=== PATIENT | male | born 1965 | race Caucasian/White ===

== ENCOUNTER 2023-10-16 02:46 | Inpatient (IN) | payer OTHER, SELFPAY ==
--- NOTE | ~2023-10-16 | XR_ITS ---
Right Knee Technique: AP, lateral, and oblique views were obtained. Clinical History: Pain Findings: No fracture or dislocation is seen. Osseous alignment is anatomic. Minimal patellar spurrin g noted. Soft tissues are unremarkable. No joint effusion is seen. Impression: Minimal patellar spurring. Reviewed, dictated and finalized at location . Impression: Minimal patellar spurring.
--- NOTE | ~2023-10-16 | US_ITS ---
EXAMINATION: US venous doppler LE RT DATE: 10/16/2023 13:30 INDICATION: Right lower limb swelling. TECHNIQUE: Grayscale ultrasound images without and with compression and Doppler ultrasound images of the right lower extremity veins were obtained. COMPARISON: None. FINDINGS: The visualized portions of right common femoral vein, profunda (deep) femoral vein, femoral vein, pop liteal vein, peroneal veins, posterior tibial veins, and greater saphenous vein outflow are patent. T here is a small De La Rosa's cyst. IMPRESSION: 1. No deep venous thrombosis. 2. Small De La Rosa's cyst. Reviewed, dictated and finalized at location A.
[2023-10-16 02:48] VITALS: BP 126/78; PULSE 87; RESP 16; TEMP 36.9; O2SAT 99
--- NOTE | 2023-10-16 03:23 | ED.GENADULT ---
HPI - General Adult General Chief complaint: Extremity Problem,Nontraumatic Stated complaint: right knee swelling Time Seen by Provider: 10/16/23 02:57 History of Present Illness HPI narrative: patient is 58-year-old gentleman presents emergency department with chief complaint of pain in the right area. Patient reports that he does a lot of movement around at work including having to crawl around on his knees the patient reports that he was wearing pants reports of trauma patient states that he got off work and walk around midnight 30 with pain just below his kneecap on the right leg patient reports pain is not worsened whenever he stands reports that it hurts whenever he moves the knee and it appears to be below the actual knee joint itself. Patient denies fever reports that he has had no puncture wounds or trauma to the affected area. The patient denies redness to the knee Related Data Allergies Allergy/AdvReac Type Severity Reaction Status Date / Time No Known Allergies Allergy Verified 10/16/23 02:48 Review of Systems Review of Systems: A 10 system review of systems was completed on the patient and is negative except for what is stated in the HPI. Nursing and ancillary documentation was reviewed. Exam Narrative: GENERAL: Well-appearing, well-nourished, and in no acute distress. HEAD: Normocephalic, atraumatic. EYES: PERRLA and EOMI. ENT: Nares clear, no rhinorrhea or epistaxis. Mucous membranes moist. NECK: Supple. CHEST: Clear to auscultation. No respiratory distress. HEART: Regular rate and rhythm. No murmur heard. Normal peripheral pulses. ABDOMEN: Soft, nontender, nondistended, normal active bowel sounds. EXTREMITIES: Normal range of motion there is swelling present inferior to the right patella tendon. anterior posterior drawer are negative Kevin's is negative. The joint is stable to lateral movement of the lower extremity there is no erythema on the overlying tissue. No edema. SKIN: Warm, dry, no rash. NEURO: No focal deficits. Alert and oriented x3. PSYCH: Normal mood and affect. Course Vital Signs Vital signs: Vital Signs Temperature 36.9 C 10/16/23 02:48 Pulse Rate 87 10/16/23 02:48 Respiratory Rate 16 10/16/23 02:48 Blood Pressure 126/78 10/16/23 02:48 Pulse Oximetry 99 05/30/24 02:48 Temperature 36.9 C 10/16/23 02:48 Pulse Rate 82 10/16/23 06:37 Respiratory Rate 16 10/16/23 06:37 Blood Pressure 122/72 10/16/23 06:37 Pulse Oximetry 98 10/16/23 06:37 Procedures Joint Aspiration/Injection Joint Asp./Inject. 1: Joint Aspiration Date: 10/16/23 Joint Aspiration Time: 04:35 Time Out Performed: Yes Side of body: right Joint Aspirated: knee (infrapatellar bursa) Ultrasound Guidance: Yes Skin Prep: sterile prep and drape Local Anesthetic: none Needle Size Used: 18G Fluid Obtained: bloody Total fluid obtained (mL): 2 Patient Tolerated Procedure: well and no complications Complications: none Medical Decision Making MDM Narrative Medical decision making narrative: differential diagnosis includes septic arthritis, septic bursitis, bursitis, gout, plain film x-ray showed no evidence of fracture and no evidence of joint effusion. Bedside ultrasound did show fluid in the bursa laboratory studies were obtained on the patient showed a white count of 16.4 electrolytes showed a sodium of 138 sed rate was slightly elevated at 25 CRP was elevated at 3.2 the bursa was aspirated which showed 12,848 white blood cells with 79% neutrophils there were no crystals seen gram stain showed Gram-positive cocci the case was discussed with Orthopedics on-call the patient was started on Rocephin and vancomycin and the patient will be admitted for management of the septic infrapatellar bursitis Vital Signs Vital Signs: Vital Signs Temperature 36.9 C 10/16/23 02:4
[2023-10-16 03:36] LABS: Basophils Absolute Auto 0.1 K/mm3 (0.0-0.1); Basophils Percent Auto 0.4 % (0.2-1.2); Eosinophils Percent Auto 0.1 % (0-4.4); Hematocrit 43.7 % (42.0-52.0); Hemoglobin 14.6 g/dL (14.0-18.0); Immature Granulocyte Absolute 0.07 K/mm3 (0.00-0.031); Immature Granulocyte Percent A 0.4 % (0-0.5); Lymphocytes Absolute Auto 1.54 K/mm3 (0.9-3.2); Lymphocytes Percent Auto 9.4 % (18.3-44.2); Mean Corpuscular HGB Conc 33.4 g/dl (32-36); Mean Corpuscular Hemoglobin 30.5 pg (26-34); Mean Corpuscular Volume 91.2 fl (80-100); Mean Platelet Volume 10.7 fl (7.4-10.4); Monocytes Percent Auto 6.2 % (2.6-8.5); Neutrophils Absolute Auto 13.7 K/mm3 (1.3-6.7); Neutrophils Percent Auto 83.5 % (45.5-73.1); Platelet Count Result 223 k/mm3 (150-375); Red Blood Count 4.79 M/mm3 (4.6-6.20); Red Cell Distribution Width 13.1 % (11.5-14.5); White Blood Count 16.4 K/mm3 (4.5-10.0)
[2023-10-16] MEDS: KETOROLAC 30 MG/ML VIAL (*BKC) IM (03:37)
[2023-10-16 03:45] LABS: Alanine Aminotransferase 27 U/L (6-50); Albumin Level 4.2 g/dL (3.5-5.1); Alkaline Phosphatase 57 U/L (38-126); Anion Gap 8 mmol/L (4-12); Aspartate Amino Transferase 30 U/L (17-59); Bilirubin,Total 0.6 mg/dL (0.2-1.3); Blood Urea Nitrogen 15 mg/dL (9-20); Calcium 9.1 mg/dL (8.4-10.2); Carbon Dioxide 23 mmol/L (22-30); Chloride 105 mmol/L (98-107); Estimated CRCL calculation 76 ml/min; Estimated Glomerular Filt Rate > 60; Glucose 118 mg/dL (65-110); Potassium 3.7 mmol/L (3.4-5.0); Sodium 136 mmol/L (137-145)
[2023-10-16 03:47] LABS: CRP 3.2 mg/dL (<1.0)
[2023-10-16 03:59] LABS: Erythrocyte Sedimentation Rate 25 mm/hr (0-20)
--- NOTE | 2023-10-16 04:18 | PC.NURSE ---
Consent signed for aspiration of right knee bursa to be performed by GHASSAN Lai.
[2023-10-16] MEDS: HYDROcodone/acetaminophen (*CRX) 5-325 MG TABLET 1 TAB PO ×2 (04:42→21:15)
[2023-10-16 05:22] LABS: Appearance Synovial Fluid Cloudy (Clear); Color Synovial Fluid Red (Colorless); Neutrophils Synovial Fluid 79 % (0-25); Nucleated Cell Synovial Fluid 12848 /uL (0-200); RBC Synovial Fluid 184000 /uL (0-0); Source Synovial Fluid Synovial fluid
[2023-10-16 05:23] LABS: Lymphocytes Synovial Fluid 6 %; Macrophages Synovial Fluid 8 %; Monocytes Synovial Fluid 6 %
[2023-10-16 05:31] LABS: Crystals Synovial Fluid None Seen (None Seen)
[2023-10-16 06:37] VITALS: BP 122/72; PULSE 82; RESP 16; O2SAT 98
[2023-10-16] MEDS: VANCOMYCIN 1,250 MG/NS 250 ML 1,250 MG/250 ML BAG 166.67 MG IVPB ×2 (07:39→09:33)
--- NOTE | 2023-10-16 08:01 | ADMGEN ---
This patient, Yevgeniy Romero, was admitted to Medical Room 260-. Patient/family oriented to hospital policies and general routines including ID bracelet, bed and alarms, visiting hours, pain management, procedures, bathroom and other care routines, personal items, smoking policy, room service/diet, and visiting hours. Information on how to activate the Rapid Response Team has been discussed. Patient/Family are encouraged to report perceived risks to care and to ask questions if they do not understand what they are told or what they should do.
[2023-10-16 08:03] VITALS: BMI 32.4
[2023-10-16 09:07] VITALS: BP 98/64; PULSE 57; RESP 18; TEMP 36.2; O2SAT 98
[2023-10-16] MEDS: MORPHINE SULFATE (*CRX) 2 MG/ML INJ IV PUSH ×3 (09:09→23:00)
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
[2023-10-16] MEDS: SODIUM CHLORIDE 0.9% IV 1,000 ML 999 ML IV CONT (12:45)
[2023-10-16] MEDS: cefTRIAXone 2 GM/NS 100 ML 2 GM/100 ML BAG IVPB (12:45)
[2023-10-16] MEDS: ENOXAPARIN 40 MG/0.4 ML SYRINGE SUB-Q (12:46)
[2023-10-16 12:59] LABS: Hemoglobin A1C 5.9 % (<5.7)
[2023-10-16 16:46] VITALS: BP 111/55; PULSE 66; RESP 16; TEMP 36.8; O2SAT 98
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
[2023-10-16 19:47] VITALS: BP 126/60; PULSE 68; RESP 17; TEMP 36.5; O2SAT 99
[2023-10-17] MEDS: HYDROcodone/acetaminophen (*CRX) 5-325 MG TABLET 1 TAB PO ×3 (02:00→19:37)
[2023-10-17] MEDS: VANCOMYCIN 1,500 MG/NS 500 ML 1,500 MG/500 ML BAG 250 MG IVPB (02:01)
[2023-10-17 04:28] VITALS: BP 138/82; PULSE 70; RESP 18; TEMP 36.6; O2SAT 99
[2023-10-17 05:22] LABS: Basophils Percent Auto 0.3 % (0.2-1.2); Eosinophils Absolute Auto 0.1 K/mm3 (0-0.3); Eosinophils Percent Auto 0.6 % (0-4.4); Hematocrit 40.1 % (42.0-52.0); Hemoglobin 13.5 g/dL (14.0-18.0); Immature Granulocyte Absolute 0.05 K/mm3 (0.00-0.031); Immature Granulocyte Percent A 0.4 % (0-0.5); Lymphocytes Absolute Auto 1.23 K/mm3 (0.9-3.2); Lymphocytes Percent Auto 9.8 % (18.3-44.2); Mean Corpuscular HGB Conc 33.7 g/dl (32-36); Mean Corpuscular Hemoglobin 31.3 pg (26-34); Mean Platelet Volume 11.4 fl (7.4-10.4); Monocytes Percent Auto 8.2 % (2.6-8.5); Neutrophils Absolute Auto 10.1 K/mm3 (1.3-6.7); Neutrophils Percent Auto 80.7 % (45.5-73.1); Platelet Count Result 193 k/mm3 (150-375); Red Blood Count 4.31 M/mm3 (4.6-6.20); Red Cell Distribution Width 13.1 % (11.5-14.5); White Blood Count 12.5 K/mm3 (4.5-10.0)
[2023-10-17 05:40] LABS: Alanine Aminotransferase 41 U/L (6-50); Albumin Level 3.5 g/dL (3.5-5.1); Alkaline Phosphatase 62 U/L (38-126); Anion Gap 6 mmol/L (4-12); Aspartate Amino Transferase 38 U/L (17-59); Bilirubin,Total 0.7 mg/dL (0.2-1.3); Blood Urea Nitrogen 12 mg/dL (9-20); Calcium 8.1 mg/dL (8.4-10.2); Carbon Dioxide 23 mmol/L (22-30); Chloride 109 mmol/L (98-107); Estimated CRCL calculation 76 ml/min; Estimated Glomerular Filt Rate > 60; Glucose 114 mg/dL (65-110); Potassium 3.6 mmol/L (3.4-5.0); Sodium 138 mmol/L (137-145)
--- NOTE | 2023-10-17 06:50 | PM.IMPN ---
Progress Note: A&P Assessment and Plan (1) Septic infrapatellar bursitis of right knee: Code(s): M71.161 - Other infective bursitis, right knee; B96.89 - Other specified bacterial agents as the cause of diseases classified elsewhere Status: Acute Assessment and Plan: Erythema, edema and warmth noted to the right knee with painful active ROM, fluctuance of the bursa with pain on palpation, tenderness to the distal patella and the upper urbina. 2+ DP pulses bilaterally. Patient able to ambulate around room without assistance. White count 16.4, neutrophils 83.5% on admission. Lactic normal Knee XR: Minimal patellar spurring Venous Doppler negative for DVT S/p joint aspiration in the ER. G stain showing Gram-positive cocci. Synovial fluid culture collected on 10/15: Pending Blood cultures collected on 10/15: NGTD Antibiotics: Rocephin and vancomycin started 10/15 Analgesics: Oxy, Morphine and Tylenol Received 1 L NS for borderline pressure, blood pressure remains stable. Continue to monitor Orthopedics was consulted, recommend continued IV antibiotics and monitor for 24 hours. If patient does not clinically improve, may aspirate the bursa again with possible need for surgical debridement. Aqua K-pad ordered Lovenox and SCD for DVT prophylaxis (2) Prediabetes: Code(s): R73.03 - Prediabetes Status: Acute Assessment and Plan: Hgb A1c 5.9. Patient aware and states he was previously on medication but his previous PCP discontinued this after his weight loss. He is now trying to control his glucose with diet and exercise. He recently moved to the area and does not have a PCP at this time. Care coordination following. - Monitor glucose levels - Patient will have to follow up with PCP outpatient, care coordination to give PCP information Time Spent With Patient Time with patient: 25 - 35 minutes Subjective Date/time seen: 10/17/23 06:50 Interval history: 58 year old male with no significant past medical history reports to the hospital for right knee pain. Patient is pleasant lying comfortably in bed. He continues to endorse pain with flexion of the knee. He is able to ambulate around the room without issues. He was evaluated by ortho who recommend continued IV antibiotics and monitor for 24 hours. If patient does not clinically improve, may aspirate the bursa again with possible need for surgical debridement. Discussed this with patient and he states understanding. Patient had an A1c of 5.9 on labs. He states his previous PCP was monitoring this and he was on medication prior to losing weight with diet and exercise. Care coordination following for PCP referrals. Patient denies chest pain, shortness of breath, nausea/vomiting and changes bowel/bladder. Review of Systems Review of Systems: All systems reviewed & are unremarkable except as noted in HPI and below Exam Narrative: AF HR 70 RR 18 SpO2 97 BP 117/64 General: male in no acute respiratory distress who is nontoxic appearing, lying semi recumbent in bed. HEENT: Normocephalic. Atraumatic. Pupils equal round reactive to light. Extraocular movement intact. No facial asymmetry. Chest: Lungs are clear to auscultation bilaterally. No wheezes or crackles. CV: Heart was regular rate and rhythm. S1/S2. No murmurs, gallops, or rubs. Abd: Abdomen was soft. Nontender. Nondistended. Positive bowel sounds. No organomegaly or masses. Ext: Erythema, edema and warmth noted to the right knee with painful active ROM, fluctuance of the bursa with pain on palpation, tenderness to the distal patella and the upper urbina. 2+ DP pulses bilaterally. Patient able to ambulate around room without assistance. Neuro: Patient is alert and oriented x4. Cranial nerves 2-12 are intact. Speech is clear. Psych: Normal mood and affect. Patient is pleasant and cooperative. Skin: Warm and dry. Objective Data Vital Signs Vital Signs: Vital Signs - 24 hr 10/16/23
[2023-10-17] MEDS: MORPHINE SULFATE (*CRX) 2 MG/ML INJ IV PUSH ×4 (07:38→21:28)
--- NOTE | 2023-10-17 07:38 | PM.PNORT ---
Progress Note: A&P Assessment and Plan (1) Septic infrapatellar bursitis of right knee: Code(s): M71.161 - Other infective bursitis, right knee; B96.89 - Other specified bacterial agents as the cause of diseases classified elsewhere Status: Acute Assessment and Plan: Patient is day 2. After admission to the hospital and initiation of vancomycin and ceftriaxone. Aspirate was sent for culture of right prepatellar infrapatellar bursa and cultures are pending. It did show Gram-positive cocci moderate under the microscope. His white count today is 12.5 somewhat improved. On exam his range of motion is 0-80 degrees. I can feel a [id number] effusion in his right knee today but with careful attention to location of tenderness, the patient states that he has no tenderness in the suprapatellar bursa and the effusion. His tenderness is all distal to the patella. With flexion to 80 he feels pain from the tibial tubercle down about 12 in long the front of the urbina. He is comfortable walking he has been up to the bathroom already this morning. We will see how he progresses over the next 24 hours. If he is not clinically improved by then, it may be beneficial to aspirate the prepatellar bursa again. If this does not improve with antibiotics along he may require surgical debridement and this was discussed. Subjective Subjective Date/Time Seen: 10/17/23 07:38 Objective Data Vital Signs Vital Signs: Vital Signs - 24 hr 10/16/23 09:07 10/16/23 08:00 10/16/23 16:46 Temperature 36.2 C L 36.8 C Pulse Rate 57 L 66 Respiratory Rate 18 16 Blood Pressure 98/64 L 111/55 L Pulse Oximetry 98 98 Oxygen Delivery Room Air 10/16/23 19:47 10/17/23 04:28 Temperature 36.5 C 36.6 C Pulse Rate 68 70 Respiratory Rate 17 18 Blood Pressure 126/60 138/82 Pulse Oximetry 99 99 Oxygen Delivery Intake/Output Intake/Output: Intake & Output 10/14/23 10/15/23 10/16/23 10/17/23 23:59 23:59 23:59 23:59 Intake Total 1230 500 Balance 1230 500 Meds/Results Medications: Active Medications Generic Name Dose Route Start Last Admin Trade Name Freq PRN Reason Stop Dose Admin Acetaminophen 650 mg 10/16/23 07:12 Acetaminophen 325 Mg Tablet PO Q4H PRN Mild Pain (1-3) or Fever Hydrocodone Bitart/Acetaminophen 1 tab 10/16/23 18:21 10/17/23 02:00 Hydrocodone/Acetaminophen (*Crx) 5-325 Mg Tablet PO 1 tab Q4H PRN Administration Pain Rated 4-6 Enoxaparin Sodium 40 mg 10/16/23 12:20 10/16/23 12:46 Enoxaparin 40 Mg/0.4 Ml Syringe SUB-Q 40 mg DAILY SURJIT Administration Vancomycin HCl 1,500 mg in 500 mls @ 250 mls/hr 10/17/23 02:00 10/17/23 04:01 Vancomycin 1,500 Mg/Ns 500 Ml IVPB Infused Q18H SURJIT Infusion Ceftriaxone Sodium 2 gm in 100 mls @ 200 mls/hr 10/16/23 12:00 10/16/23 12:45 Rocephin 2 Gm/Ns 100 Ml IVPB 200 mls/hr Q24H SURJIT Administration Morphine Sulfate 2 mg 10/16/23 07:12 10/17/23 07:38 Morphine Sulfate (*Crx) 2 Mg/Ml Inj IV PUSH 2 mg Q2H PRN Administration Pain Rated 7-10 Radiology Results: ITS Impressions Knee X-Ray 10/16/23 05:33 Impression: Minimal patellar spurring. Venous Doppler Study 10/16/23 13:32 IMPRESSION: 1. No deep venous thrombosis. 2. Small De La Rosa's cyst. Labs Labs: Laboratory Results - last 24 hr 10/16/23 10/16/23 10/17/23 03:27 12:30 04:18 WBC 12.5 H RBC 4.31 L Hgb 13.5 L Hct 40.1 L MCV 93.0 MCH 31.3 MCHC 33.7 RDW 13.1 Plt Count 193 MPV 11.4 H Immature Gran % (Auto) 0.4 Neut % (Auto) 80.7 H Lymph % (Auto) 9.8 L Becker % (Auto) 8.2 Eos % (Auto) 0.6 Baso % (Auto) 0.3 Lymph # (Auto) 1.23 Becker # (Auto) 1.0 H Eos # (Auto) 0.1 Baso # (Auto) 0.0 Abs Immat Gran (auto) 0.05 H Absolute Neuts (auto) 10.1 H Absolute Nucleated RBC 0.000 Nucleated RBC % 0.0 Sodium 138 Potassium 3.6 Chlori
[2023-10-17] MEDS: ENOXAPARIN 40 MG/0.4 ML SYRINGE SUB-Q (08:20)
[2023-10-17] MEDS: cefTRIAXone 2 GM/NS 100 ML 2 GM/100 ML BAG IVPB (12:31)
[2023-10-17 13:23] VITALS: BP 117/64; PULSE 70; RESP 18; TEMP 36.9; O2SAT 97
[2023-10-17 19:23] VITALS: BP 125/70; PULSE 79; RESP 17; TEMP 36.5; O2SAT 100
[2023-10-17 19:27] LABS: Vancomycin Trough 6.3 ug/mL (10.0-20.0)
[2023-10-17] MEDS: VANCOMYCIN 1,750 MG/NS 500 ML 1,750 MG/500 ML BAG 250 MG IVPB (21:00)
[2023-10-18] MEDS: HYDROcodone/acetaminophen (*CRX) 5-325 MG TABLET 1 TAB PO ×5 (03:30→17:09)
[2023-10-18 04:41] VITALS: BP 109/60; PULSE 72; RESP 17; TEMP 36.6; O2SAT 98
[2023-10-18 05:17] LABS: Estimated CRCL calculation 70 ml/min; Estimated Glomerular Filt Rate > 60
[2023-10-18 06:54] LABS: Basophils Absolute Auto 0.1 K/mm3 (0.0-0.1); Basophils Percent Auto 0.5 % (0.2-1.2); Eosinophils Absolute Auto 0.1 K/mm3 (0-0.3); Eosinophils Percent Auto 0.8 % (0-4.4); Hematocrit 39.6 % (42.0-52.0); Hemoglobin 13.1 g/dL (14.0-18.0); Immature Granulocyte Absolute 0.05 K/mm3 (0.00-0.031); Immature Granulocyte Percent A 0.5 % (0-0.5); Lymphocytes Absolute Auto 1.39 K/mm3 (0.9-3.2); Lymphocytes Percent Auto 13.7 % (18.3-44.2); Mean Corpuscular HGB Conc 33.1 g/dl (32-36); Mean Corpuscular Hemoglobin 30.8 pg (26-34); Mean Platelet Volume 11.6 fl (7.4-10.4); Monocytes Percent Auto 9.7 % (2.6-8.5); Neutrophils Absolute Auto 7.6 K/mm3 (1.3-6.7); Neutrophils Percent Auto 74.8 % (45.5-73.1); Platelet Count Result 199 k/mm3 (150-375); Red Blood Count 4.26 M/mm3 (4.6-6.20); Red Cell Distribution Width 13.1 % (11.5-14.5); White Blood Count 10.1 K/mm3 (4.5-10.0)
--- NOTE | 2023-10-18 07:06 | PM.IMPN ---
Progress Note: A&P Assessment and Plan (1) Septic infrapatellar bursitis of right knee: Code(s): M71.161 - Other infective bursitis, right knee; B96.89 - Other specified bacterial agents as the cause of diseases classified elsewhere Status: Acute Assessment and Plan: Erythema, edema and warmth noted to the right knee with painful active ROM, fluctuance of the bursa with pain on palpation, tenderness to the distal patella and the upper urbina. 2+ DP pulses bilaterally. Patient able to ambulate around room without assistance. White count 16.4, neutrophils 83.5% on admission. Lactic normal Knee XR: Minimal patellar spurring Venous Doppler negative for DVT S/p joint aspiration in the ER. G stain showing Gram-positive cocci. Synovial fluid culture collected on 10/15: Pending. Cultures were not fully obtained by [facility] and results have not returned. If the fluid that was drawn from the bursa is unobtainable, patient will have to be treated empirically. Blood cultures collected on 10/15: NGTD Antibiotics: Rocephin and vancomycin started 10/15 Analgesics: Oxy, Morphine and Tylenol Received 1 L NS for borderline pressure, blood pressure remains stable. Continue to monitor Orthopedics was consulted, recommend continued IV antibiotics and monitor for 24 hours. If patient does not clinically improve, may aspirate the bursa again with possible need for surgical debridement. [facility] ordered Lovenox and SCD for DVT prophylaxis Per ortho note, the cultures were not fully obtained by [facility] and results have not returned. At this time plan to continue vanc adn rocephin as these have been effective. If the fluid that was drawn from the bursa is unobtainable, patient will have to be treated empirically. Likely needing dual antibiotics such as Keflex for optimal coverage of oxacillin sensitive Staph aureus and other strep and doxycycline to cover MRSA.? (2) Prediabetes: Code(s): R73.03 - Prediabetes Status: Acute Assessment and Plan: Hgb A1c 5.9. Patient aware and states he was previously on medication but his previous PCP discontinued this after his weight loss. He is now trying to control his glucose with diet and exercise. He recently moved to the area and does not have a PCP at this time. Care coordination following. - Monitor glucose levels - Patient will have to follow up with PCP outpatient, care coordination to give PCP information Time Spent With Patient Time with patient: 25 - 35 minutes Subjective Date/time seen: 10/18/23 07:07 Interval history: 58 year old male with no significant past medical history reports to the hospital for right knee pain. Patient is pleasant lying comfortably in bed. He continues to endorse pain with knee flexion and still has erythema, edema and warmth from the knee down to the center urbina. He is still able to ambulate throughout his room, but notes that when he does this he avoids knee flexion. ROM of the knee has improved. Per ortho note, the cultures were not fully obtained by [facility] [employer] and results have not returned. At this time plan to continue vanc and rocephin as these have been effective. If the fluid that was drawn from the bursa is unobtainable, patient will have to be treated empirically. Likely needing dual antibiotics such as Keflex for optimal coverage of oxacillin sensitive Staph aureus and other strep and doxycycline to cover MRSA. Patient continues to deny chest pain, shortness of breath, nausea/vomting, and changes in bowel/bladder. ? Review of Systems Review of Systems: All systems reviewed & are unremarkable except as noted in HPI and below Exam Narrative: AF HR 68 RR 16 SpO2 97 BP 106/65 General: male in no acute respiratory distress who is nontoxic appearing, lying semi recumbent in bed. HEENT: Normocephalic. Atraumatic. Pupils equal round reactive to light. Extraocular movement intact. No facial asymmetry. Chest: Lungs are clear to auscultation bila
[2023-10-18 07:15] LABS: Alanine Aminotransferase 77 U/L (6-50); Albumin Level 3.4 g/dL (3.5-5.1); Alkaline Phosphatase 88 U/L (38-126); Anion Gap 4 mmol/L (4-12); Aspartate Amino Transferase 88 U/L (17-59); Bilirubin,Total 0.5 mg/dL (0.2-1.3); Blood Urea Nitrogen 12 mg/dL (9-20); Calcium 8.3 mg/dL (8.4-10.2); Carbon Dioxide 23 mmol/L (22-30); Chloride 109 mmol/L (98-107); Estimated CRCL calculation 70 ml/min; Estimated Glomerular Filt Rate > 60; Glucose 95 mg/dL (65-110); Potassium 3.6 mmol/L (3.4-5.0); Sodium 136 mmol/L (137-145)
[2023-10-18 07:36] VITALS: O2SAT 98
[2023-10-18 08:37] VITALS: BP 106/65; PULSE 68; RESP 16; TEMP 36.6; O2SAT 97
[2023-10-18] MEDS: VANCOMYCIN 1,750 MG/NS 500 ML 1,750 MG/500 ML BAG 250 MG IVPB ×2 (08:38→21:41)
[2023-10-18] MEDS: ENOXAPARIN 40 MG/0.4 ML SYRINGE SUB-Q (08:38)
[2023-10-18] MEDS: cefTRIAXone 2 GM/NS 100 ML 2 GM/100 ML BAG IVPB (12:42)
--- NOTE | 2023-10-18 14:11 | PM.PNORT ---
Progress Note: A&P Assessment and Plan (1) Septic infrapatellar bursitis of right knee: Code(s): M71.161 - Other infective bursitis, right knee; B96.89 - Other specified bacterial agents as the cause of diseases classified elsewhere Status: Acute Assessment and Plan: Patient is doing a little better. He does note that the knee gets sore when he stands on it for more than a few minutes and it is somewhat painful for him to do a straight leg raise in the region of the patellar tendon. On the other hand, he shows definite improvement in his ability to flex and the which is to 120? today. He still has mild erythema diffuse mild to moderate swelling over the anterior aspect over the tibial tubercle and radiating distal to this. Trace effusion palpable in the suprapatellar pouch today and again this effusion is nontender. 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 The skin is without ecchymosis or blistering or area of visible super a urbina and he has no obvious fluid collection under the skin on palpation. The cultures she did not have a preliminary result and it should and I called the lab and apparently this culture because there was only a little bit of fluid left in the syringe with which they could culture did not get set up until yesterday. That was done at [facility] and the lab was going to call [facility] make sure that this has been set up. The preliminary blood cultures which were drawn 8 hours after the knee was aspirated are negative so far. Again he did have moderate Gram-positive cocci in the Gram stain of the fluid. His white count is 10.1 today. It was 12.5 yesterday 16.4 the day before. Will continue with the vancomycin and ceftriaxone which seems to be effective currently. If we learned that the fluid that was drawn 2 days ago from the infrapatellar bursa of the right knee is lost or if [facility] failed to be able to set up a culture, we will have to treat him empirically and I would lean toward using dual antibiotics such as Keflex for optimal coverage of oxacillin sensitive Staph aureus and other strep the best and doxycycline to cover MRSA. If he shows further go clinical improvement tomorrow I think that will protect that he should do well without surgical bursectomy and debridement. Will continue with the same treatment. Venous duplex ultrasound of the right leg shows no evidence of DVT and the small popliteal cyst Hemoglobin A1c was 5.9% which is minimally elevated. This would suggest he does have borderline diabetes and he should follow up with his primary care physician which he needs to obtain. This was discussed. Subjective Subjective Date/Time Seen: 10/18/23 14:11 Objective Data Vital Signs Vital Signs: Vital Signs - 24 hr 10/17/23 19:23 10/18/23 04:41 10/18/23 07:36 Temperature 36.5 C 36.6 C Pulse Rate 79 72 Respiratory Rate 17 17 Blood Pressure 125/70 109/60 Pulse Oximetry 100 98 98 Oxygen Delivery Room Air 10/18/23 08:37 10/18/23 08:25 Temperature 36.6 C Pulse Rate 68 Respiratory Rate 16 Blood Pressure 106/65 Pulse Oximetry 97 Oxygen Delivery Room Air Intake/Output Intake/Output: Intake & Output 10/15/23 10/16/23 10/17/23 10/18/23 23:59 23:59 23:59 23:59 Intake Total 1330 2310 1320 Balance 1330 2310 1320 Meds/Results Medications: Active Medications Generic Name Dose Route Start Last Admin Trade Name Freq PRN Reason Stop Dose Admin Acetaminophen 650 mg 10/16/23 07:12 Acetaminophen 325 Mg Tablet PO Q4H PRN Mild Pain (1-3) or Fever Hydrocodone Bitart/Acetaminophen 1 tab 10/16/23 18:21 10/18/23 12:43 Hydrocodone/Acetaminophen (*Crx) 5-325 Mg Tablet PO 1 tab Q4H PRN Administration Pain Rated 4-6 Enoxaparin Sodium 40 mg 10/16/23 12:20 10/18/23 08:38 Enoxaparin 40 Mg/0.4 Ml Syringe SUB-Q 40 mg DAILY SURJIT Administration Ceftri
[2023-10-18] MEDS: MORPHINE SULFATE (*CRX) 2 MG/ML INJ IV PUSH ×2 (15:23→18:20)
[2023-10-18 15:30] VITALS: BP 114/74; PULSE 73; RESP 16; TEMP 36.8; O2SAT 96
[2023-10-18] MEDS: CELECOXIB 200 MG CAPSULE PO (18:55)
[2023-10-18] MEDS: oxyCODONE HCL (*CRX) 5 MG TAB IR PO (20:07)
[2023-10-18 21:53] VITALS: BP 124/62; PULSE 60; RESP 18; TEMP 36.5; O2SAT 90
[2023-10-19] MEDS: ACETAMINOPHEN 500 MG TABLET 1000 MG PO ×3 (00:10→12:25)
[2023-10-19] MEDS: oxyCODONE HCL (*CRX) 5 MG TAB IR PO ×2 (03:27→09:57)
[2023-10-19 06:00] VITALS: BP 108/62; PULSE 62; RESP 20; TEMP 36.5; O2SAT 97
[2023-10-19 08:32] LABS: Basophils Percent Auto 0.5 % (0.2-1.2); Eosinophils Absolute Auto 0.1 K/mm3 (0-0.3); Eosinophils Percent Auto 1.5 % (0-4.4); Hematocrit 39.6 % (42.0-52.0); Hemoglobin 13.3 g/dL (14.0-18.0); Immature Granulocyte Absolute 0.13 K/mm3 (0.00-0.031); Immature Granulocyte Percent A 1.5 % (0-0.5); Lymphocytes Absolute Auto 1.13 K/mm3 (0.9-3.2); Lymphocytes Percent Auto 13.5 % (18.3-44.2); Mean Corpuscular HGB Conc 33.6 g/dl (32-36); Mean Corpuscular Hemoglobin 31.1 pg (26-34); Mean Corpuscular Volume 92.5 fl (80-100); Mean Platelet Volume 10.9 fl (7.4-10.4); Monocytes Absolute Auto 0.7 K/mm3 (0.1-0.6); Monocytes Percent Auto 8.3 % (2.6-8.5); Neutrophils Absolute Auto 6.3 K/mm3 (1.3-6.7); Neutrophils Percent Auto 74.7 % (45.5-73.1); Platelet Count Result 208 k/mm3 (150-375); Red Blood Count 4.28 M/mm3 (4.6-6.20); Red Cell Distribution Width 12.9 % (11.5-14.5); White Blood Count 8.4 K/mm3 (4.5-10.0)
[2023-10-19 08:46] LABS: Alanine Aminotransferase 124 U/L (6-50); Albumin Level 3.3 g/dL (3.5-5.1); Alkaline Phosphatase 120 U/L (38-126); Anion Gap 3 mmol/L (4-12); Aspartate Amino Transferase 121 U/L (17-59); Bilirubin,Total 0.4 mg/dL (0.2-1.3); Blood Urea Nitrogen 13 mg/dL (9-20); Calcium 8.2 mg/dL (8.4-10.2); Carbon Dioxide 24 mmol/L (22-30); Chloride 110 mmol/L (98-107); Estimated CRCL calculation 70 ml/min; Estimated Glomerular Filt Rate > 60; Glucose 107 mg/dL (65-110); Potassium 3.7 mmol/L (3.4-5.0); Sodium 137 mmol/L (137-145)
[2023-10-19 09:10] LABS: Vancomycin Trough 14.8 ug/mL (10.0-20.0)
[2023-10-19] MEDS: VANCOMYCIN 1,750 MG/NS 500 ML 1,750 MG/500 ML BAG 250 MG IVPB (09:54)
[2023-10-19] MEDS: ENOXAPARIN 40 MG/0.4 ML SYRINGE SUB-Q (09:57)
[2023-10-19] MEDS: CELECOXIB 200 MG CAPSULE PO (09:57)
--- NOTE | 2023-10-19 10:05 | PM.PNORT ---
Progress Note: A&P Assessment and Plan (1) Septic infrapatellar bursitis of right knee: Code(s): M71.161 - Other infective bursitis, right knee; B96.89 - Other specified bacterial agents as the cause of diseases classified elsewhere Status: Acute Assessment and Plan: Patient is hospital day 4.. Cultures from the right infrapatellar bursal aspiration are growing Staph aureus. Susceptibilities are still pending. I note that the culture results as synovial fluid unspecified. Per communication with the emergency room doctor and by his emergency room record report this was a bursal aspiration and not knee joint aspiration. I have called the laboratory to ask him to correct the reports which say synovial fluid unspecified as the source which is incorrect. On exam today he notes that the redness is much less and I would agree. He has a very faint area of erythema still with slight warmth in the infrapatellar bursal region an area about 4 in long 3 in wide and this area is tender. He still has a little bit of tenderness the pretibial area below this. I cannot feel any fluid collection. Is a mild palpable suprapatellar effusion in the knee and this area again is nontender. His range of motion is the same today 0-120. He has pain in the region the tibial tubercle at this degree of flexion. Last night he was having more pain today is much more comfortable. His white count is down to 8.4 now so it is dropped every day. Patient would like to go home. I think it would be appropriate to discharge him and will give him a week of both doxycycline to cover most MRSA and Keflex which would be the best oral antibiotic to cover oxacillin sensitive Staph aureus and we will wait on the sensitivities. I will have him call my office tomorrow. If susceptibilities are back by then we will switch him to a single antibiotic. If it is MRSA and if it is resistant to doxycycline which locally has been about 10% of the time, we will need to switch his antibiotics than to something that his strain is susceptible to. Will verify plans to discharge patient with hospitalist of course was admitted Subjective Subjective Date/Time Seen: 10/19/23 10:05 Objective Data Vital Signs Vital Signs: Vital Signs - 24 hr 10/18/23 15:30 10/18/23 21:53 10/19/23 06:00 Temperature 36.8 C 36.5 C 36.5 C Pulse Rate 73 60 62 Respiratory Rate 16 18 20 Blood Pressure 114/74 124/62 108/62 Pulse Oximetry 96 90 97 Intake/Output Intake/Output: Intake & Output 10/16/23 10/17/23 10/18/23 10/19/23 23:59 23:59 23:59 23:59 Intake Total 1330 2310 2400 1015 Output Total 100 Balance 1330 2310 2300 1015 Meds/Results Medications: Active Medications Generic Name Dose Route Start Last Admin Trade Name Freq PRN Reason Stop Dose Admin Acetaminophen 1,000 mg 10/19/23 00:00 10/19/23 06:19 Acetaminophen 500 Mg Tablet PO 1,000 mg Q6H SURJIT Administration Celecoxib 200 mg 10/18/23 18:40 10/19/23 09:57 Celecoxib 200 Mg Capsule PO 200 mg DAILY@0800 SURJIT Administration Enoxaparin Sodium 40 mg 10/16/23 12:20 10/19/23 09:57 Enoxaparin 40 Mg/0.4 Ml Syringe SUB-Q 40 mg DAILY SURJIT Administration Ceftriaxone Sodium 2 gm in 100 mls @ 200 mls/hr 10/16/23 12:00 10/18/23 13:15 Rocephin 2 Gm/Ns 100 Ml IVPB Infused Q24H SURJIT Infusion Vancomycin HCl 1,750 mg in 500 mls @ 250 mls/hr 10/17/23 21:00 10/19/23 09:54 Vancomycin 1,750 Mg/Ns 500 Ml IVPB 250 mls/hr Q12H SURJIT Administration Oxycodone HCl 5 mg 10/18/23 18:34 10/19/23 09:57 Oxycodone Hcl (*Crx) 5 Mg Tab Ir PO 5 mg Q4H PRN Administration Pain Rated 5 or Less Oxycodone HCl 10 mg 10/18/23 18:36 Oxycodone Hcl (*Crx) 5 Mg Tab Ir PO Q4H PRN Pain Rated 6 or Greater Radiology Results: ITS Impressions Knee X-Ray 10/16/23 05:33 Impression: Minimal patellar spurring. Venous Doppler Study 10/16/23 13:32 IMPRESSION: 1.
--- NOTE | 2023-10-19 12:06 | PM.DS ---
DS: Admitting Diagnosis Discharge Date 10/19/2023 Admitting Diagnosis Septic infrapatellar bursitis right knee prediabetes DS: Discharge Diagnosis Discharge Diagnosis (1) Septic infrapatellar bursitis of right knee: Code(s): M71.161 - Other infective bursitis, right knee; B96.89 - Other specified bacterial agents as the cause of diseases classified elsewhere Status: Acute (2) Prediabetes: Code(s): R73.03 - Prediabetes Status: Acute DS: Summary Hospital Course Reason for hospitalization: Septic infrapatellar bursitis right knee prediabetes Hospital Course: 58 year old male with no significant past medical history reports to the hospital for right knee pain. On admission had leukocytosis 16.4 and borderline blood pressure requiring 1L NS. On exam he had erythema, edema, and warmth noted to the right knee with painful active ROM. An XR showed minimal patellar spurring. The bursa was aspirated and gram stain grew gram + cocci. Patient was started on IV antibiotics and ortho was consulted and recommended continued IV antibiotics at that time. Since patient improved with medical management there was no need for surgical debridement during this admission. Prior to discharge patients synovial fluid grew staph aureus with sensitivities pending. His physical exam continues to improve with medical management and he was able to ambulate around his room without assistance. Patient discharged home on doxy and keflex. Patient discharged home in a stable condition. He is to call the ortho office in the am to schedule an appointment. Per ortho note if susceptibilities are back by then they will switch him to a single antibiotic. He is to follow up with his PCP in 1-2 weeks in regards to recent admission. Status at Discharge Functional status at discharge: independent ambulation Time Spent with Patient Time attestation: Total time spent providing and/or coordinating discharge services: Exam Narrative: AF HR 62 RR 20 SpO2 97 BP 108/62 General: male in no acute respiratory distress who is nontoxic appearing, lying semi recumbent in bed. HEENT: Normocephalic. Atraumatic. Pupils equal round reactive to light. Extraocular movement intact. No facial asymmetry. Chest: Lungs are clear to auscultation bilaterally. No wheezes or crackles. CV: Heart was regular rate and rhythm. S1/S2. No murmurs, gallops, or rubs. Abd: Abdomen was soft. Nontender. Nondistended. Positive bowel sounds. No organomegaly or masses. Ext: Mild erythema with slight warmth, and minimal redness noted to the right knee with painful active ROM however improved from admission, tenderness to the distal patella and the upper urbina. 2+ DP pulses bilaterally. Patient able to ambulate around room without assistance. Neuro: Patient is alert and oriented x4. Cranial nerves 2-12 are intact. Speech is clear. Psych: Normal mood and affect. Patient is pleasant and cooperative. Skin: Warm and dry. DS: Data Data Completed and Pending Completed studies during hospitalization: Venous doppler Knee XR Labs on day of discharge: Labs from last 24 hours 10/19/23 08:03 WBC 8.4 RBC 4.28 L Hgb 13.3 L Hct 39.6 L MCV 92.5 MCH 31.1 MCHC 33.6 RDW 12.9 Plt Count 208 MPV 10.9 H Immature Gran % (Auto) 1.5 H Neut % (Auto) 74.7 H Lymph % (Auto) 13.5 L Amelia % (Auto) 8.3 Eos % (Auto) 1.5 Baso % (Auto) 0.5 Lymph # (Auto) 1.13 Amelia # (Auto) 0.7 H Eos # (Auto) 0.1 Baso # (Auto) 0.0 Abs Immat Gran (auto) 0.13 H Absolute Neuts (auto) 6.3 Absolute Nucleated RBC 0.000 Nucleated RBC % 0.0 Sodium 137 Potassium 3.7 Chloride 110 H Carbon Dioxide 24 Anion Gap 3 L BUN 13 Creatinine 1.20 Estim Creat Clear Calc 70 Estimated GFR > 60 Glucose 107 Calcium 8.2 L Total Bilirubin 0.4 AST 121 H ALT 124 H Alkaline Phosphatase 120 Total Protein 6.0 L Albumin 3.3 L Vancomycin Trough 14.8 Preliminary micro results at discharge
[2023-10-19] MEDS: cefTRIAXone 2 GM/NS 100 ML 2 GM/100 ML BAG IVPB (12:20)
[2023-10-22 18:43] LABS: Glucose Synovial Fluid 66 mg/dL; Total Protein Synovial Fluid 3.1 g/dL (1.0-3.0)
== END 2023-10-19 15:05 | disposition home or self-care (01) | DRG 558 ==
LOC: ANHED 07:15 → ANH2MED 07:39
PROVIDERS: Nurse Practitioner Acute Care; Orthopaedic Surgery; Student in an Organized Health Care Education/Training Program; Admitting Provider General Practice; Emergency Provider Emergency Medicine; Visit Provider Internal Medicine
DX: M71.161 Other infective bursitis, right knee (principal); B95.61 Methicillin susceptible Staphylococcus aureus infection as the cause of diseases classified elsewhere; R73.03 Prediabetes
CPT/HCPCS: 20610; 36415; 73562; 80053; 80202; 82565; 82945; 83036; 83605; 84157; 84550; 85025; 85652; 86140; 87040; 87070; 87075; 87081; 87181; 87205; 89051; 89060; 93971; 96365; 96366; 96367; 96372; 96375; 96376; 99285; A4565; A9270; G0378; J0696; J1650; J1885; J2270; J3370; J7030

== ENCOUNTER 2023-11-14 10:16 | Outpatient (CLI) | payer OTHER, SELFPAY ==
--- NOTE | ~2023-11-14 | US_ITS ---
EXAMINATION: US venous doppler LE RT DATE: 11/14/2023 10:55 INDICATION: Right lower limb pain and swelling TECHNIQUE: Grayscale ultrasound images without and with compression and Doppler ultrasound images of the right lower extremity veins were obtained. COMPARISON: None. FINDINGS: The visualized portions of right common femoral vein, profunda (deep) femoral vein, femoral vein, pop liteal vein, peroneal trunk, posterior tibial veins, peroneal veins, gastrocnemius vein and greater s aphenous vein outflow are patent. IMPRESSION: 1. No deep venous thrombosis in the right lower limb. Reviewed, dictated and finalized at location B.
== END 2023-11-14 10:17 | disposition home or self-care (01) ==
PROVIDERS: Visit Provider Physician Assistant Surgical
DX: R60.0 Localized edema (principal)
CPT/HCPCS: 93971